=== PATIENT | male | born 1970 | race Asian ===

== ENCOUNTER → 2016-12-30 | Outpatient (CLI) | payer OTHER ==
--- NOTE | 2016-12-30 13:50 | MA ---
Diagnostic Digital Mammogram With iCAD Analysis Clinical Indications: Evaluate palpable asymmetry in the left breast of a 46-year-old male. Technique: Standard cephalocaudal projections were obtained. Digital breast tomosynthesis was perform ed in the MLO projection with reconstruction at 1.0-mm slice thickness and composite MLO views recons tructed. This examination was processed by the iCAD computer-aided detection system. Comparison: The patient has had no previous mammograms. Breast density: Type A: Fatty. Findings: CAD was reviewed. There is asymmetric glandular tissue noted in the left breast. No suspici ous calcifications are seen and no masses are identified. The right breast has essentially no promine nt glandular elements. Impression: Palpable area corresponding to asymmetric glandular tissue requires further evaluation. B I-RADS 0. Recommendation: Targeted left breast ultrasound which will be subsequently performed today. [facility] will send a result letter to the patient. Negative mammography should not preclude additional workup of a clinically suspicious finding. The patient's information is entered into a reminder system with a target due date for her next mammo gram.
--- NOTE | 2016-12-30 18:06 | US ---
Left Breast Ultrasound History: Evaluate palpable asymmetry in the subareolar region of the left breast in a 46-year-old mal e. The patient states that he does take Pepcid intermittently. Technique: Longitudinal and transverse images were obtained utilizing a 15 MHz transducer. Color Dop pler evaluation was employed for assessment of vascularity. The examination was interpreted in conjun ction with diagnostic mammography performed earlier today. Findings: On physical examination, there is a diffuse fullness in the subareolar left breast without a discrete palpable mass. Sonographic interrogation demonstrates normal glandular elements. This appe arance would correlate well with findings on diagnostic mammography. Impression: The constellation of findings on mammography and sonography are consistent with benign gy necomastia. This entity has been associated with the use of Pepcid. Benign findings. BI-RADS 2. Recommendation: Continued clinical follow up. Additional imaging to be considered as clinically direc clifford. Findings were reviewed with the patient. [facility] will send a result letter to the patient.
== END ==
LOC: FIMAGING 12:42
PROVIDERS: ATTEND Family Medicine
DX: N62 Hypertrophy of breast (principal)
CPT/HCPCS: G0204; G0279

== ENCOUNTER → 2017-01-15 | Outpatient (CLI) | payer OTHER | LOC: FIMAGING 07:42 | PROVIDERS: ATTEND Family Medicine | DX: K82.4 Cholesterolosis of gallbladder (principal); B18.1 Chronic viral hepatitis B without delta-agent ==